=== PATIENT | male | born 1995 | race African-American/Black ===

== ENCOUNTER → 2016-12-25 | Outpatient (CLI) | payer OTHER ==
[~2016-12-25] MED LIST: ABILIFY5 MG PO; FLAGYL PO; NO MEDICATIONS; PEPCID AC20 M2 PO
--- NOTE | ~2016-12-25 | MR17 ---
[facility] A Service of [facility] RADIOLOGY TEXT RESULTS PATIENT: DAMIEN MARIEE LOCATION: [facility] : [birth year] UNIT #: [id number] AGE: [address]: Nabor Hastings II, MD SEX: M ORDER DR: [id number] [facility] [address] [place], [place] [address] [id number] O MR#: [id number] Acc #: [id number] NAME: DAMIEN MARIEE : 1995 SEX: M STUDY DATE/TIME: 12/25/2016 18:14 UNIT: [facility] ROOM: STUDY DESCRIPTION: MR Brain WWo Contrast Attending Physician: Nabor Hsatings II., M.D. Ordering Physician: Nabor Hastings II., M.D. Primary Care Physician: Primary Care Physician No MRI CENTER REPORT This report is preliminary unless electronic signature is present. EXAM Brain MRI with and without contrast DATE OF STUDY 12/25/2016 PROCEDURE Brain MR with and without contrast including seizure protocol imaging. COMPARISON None. CLINICAL HISTORY 17-year history of short-term memory loss. FINDINGS There are fairly symmetric white matter changes in the periatrial region, fairly conspicuous in their location, suggesting a potential injury, possibly in a form of premature . Brain parenchymal signal is otherwise normal, and the brain is structurally normal. There is no MR evidence of acute ischemia or other restricted diffusion and there is no hydrocephalus or extraaxial fluid collection. Bone marrow signal is normal. Normal flow voids are seen in the cerebral vessels. Postcontrast images show no abnormal enhancement. The hippocampal formations are symmetric in size and signal. IMPRESSION White matter changes focused in the periatrial regions bilaterally, fairly symmetric in a pattern most suggestive of potential injury perhaps in a former premature infant. Otherwise, normal brain MRI with and without contrast. [facility] A Service [facility] RADIOLOGY TEXT RESULTS PATIENT: DAMIEN MARIEE LOCATION: [facility] : 94 UNIT #: [id number] AGE: [address]: Nabor Hastings II, MD SEX: M ORDER DR: Dictated by... Aj Saunders M.D. THIS IS AN ELECTRONICALLY VERIFIED REPORT Aj Saunders M.D. at 12/26/2016 3:36 PM TEV/aa TD: 12/26/2016 12:46 JOB #: [id number] MRI CENTER REPORT Page 1 of 1 COPY
== END | disposition home or self-care (01) ==
LOC: CMRI 16:44
DX: R46.89 Other symptoms and signs involving appearance and behavior (principal)
CPT/HCPCS: 70553; A9577